=== PATIENT | female | born 1985 | race African-American/Black ===

== ENCOUNTER 2018-02-21 14:45 | Emergency (ER) | payer MEDICAID, OTHER ==
[2018-02-21 14:56] VITALS: BP 134/82
[2018-02-21] MEDS ORDERED: CYCLOBENZAPRINE HCL 10 MG TABLET PO ONE (15:22)
[2018-02-21] MEDS ORDERED: KETOROLAC TROMETHAMINE 60 MG/2 ML SDV IM ONE (15:22)
[2018-02-21] MEDS ORDERED: DIAZEPAM INJ 10 MG/2 ML DISP.SYRIN IM ONE (15:24)
--- NOTE | 2018-02-21 15:34 | ER Document Report ---
ED General - General Chief Complaint: Chest Pain Stated Complaint: CHEST PAIN Time Seen by Provider: 02/21/18 15:11 Mode of Arrival: Ambulatory Information source: Patient Notes: 32-year-old female presents with complaints of generalized body aches. Patient notes she is spasm in her low back which is radiating to her upper back down her arms into her chest wall. Patient notes it hurts when she lifts up her arms denies any actual chest pain shortness breath difficulty breathing TRAVEL OUTSIDE OF THE [place] IN LAST 30 DAYS: No - HPI Onset: Other - 2 To 3 months Onset/Duration: Persistent Quality of pain: Achy Severity: Mild Pain Level: 1 Associated symptoms: Body/muscle aches Exacerbated by: Movement Relieved by: Denies Similar symptoms previously: Yes Recently seen / treated by doctor: Yes - Related Data Allergies/Adverse Reactions: No Known Allergies Allergy (Verified 02/21/18 14:48) Past Medical History - Social History Smoking Status: Never Smoker Cigarette use (# per day): No Chew tobacco use (# tins/day): No Smoking Education Provided: No Frequency of alcohol use: Occasional Drug Abuse: None Family History: Reviewed & Not Pertinent Patient has suicidal ideation: No Patient has homicidal ideation: No Renal/ Medical History: Denies: Hx Peritoneal Dialysis Past Surgical History: Reports: Hx Section - Immunizations Immunizations up to date: Yes Hx Diphtheria, Pertussis, Tetanus Vaccination: Yes Review of Systems - Review of Systems Notes: REVIEW OF SYSTEMS: CONSTITUTIONAL : Denies fever, chills, or sweats. Denies recent illness. EENT: Denies eye, ear, throat, or mouth pain or symptoms. Denies nasal or sinus congestion or discharge. Denies throat, tongue, or mouth swelling or difficulty swallowing. CARDIOVASCULAR: Denies chest pain. Denies palpitations or racing or irregular heart beat. Denies ankle edema. RESPIRATORY: Denies cough, cold, or chest congestion. Denies shortness of breath, difficulty breathing, or wheezing. GASTROINTESTINAL: Denies abdominal pain or distention. Denies nausea, vomiting , or diarrhea. Denies blood in vomitus, stools, or per rectum. Denies black, tarry stools. Denies constipation. GENITOURINARY: Denies difficulty urinating, painful urination, burning, frequency, blood in urine, or discharge. FEMALE GENITOURINARY: Denies vaginal bleeding, heavy or abnormal periods, irregular periods. Denies vaginal discharge or odor. MUSCULOSKELETAL: Admits to body aches SKIN: Denies rash, lesions or sores. HEMATOLOGIC : Denies easy bruising or bleeding. LYMPHATIC: Denies swollen, enlarged glands. NEUROLOGICAL: Denies confusion or altered mental status. Denies passing out or loss of consciousness. Denies dizziness or lightheadedness. Denies headache. Denies weakness or paralysis or loss of use of either side. Denies problems with gait or speech. Denies sensory loss, numbness, or tingling. Denies seizures. PSYCHIATRIC: Denies anxiety or stress. Denies depression, suicidal ideation, or homicidal ideation. ALL OTHER SYSTEMS REVIEWED AND NEGATIVE. PHYSICAL EXAMINATION: GENERAL: Well-appearing, well-nourished and in no acute distress. HEAD: Atraumatic, normocephalic. EYES: Pupils equal round and reactive to light, extraocular movements intact, conjunctiva are normal. ENT: Nares patent, oropharynx clear without exudates. Moist mucous membranes. NECK: Normal range of motion, supple without lymphadenopathy LUNGS: Breath sounds clear to auscultation bilaterally and equal. No wheezes rales or rhonchi. HEART: Regular rate and rhythm without murmurs ABDOMEN: Soft, nontender, nondistended abdomen. No guarding, no rebound. No masses appreciated. Female : deferred Musculoskeletal: Normal range of motion, no pitting or edema. No cyanosis. Pain with range of motion of the upper extremities range of motion of the back no midline tenderness no cauda equina concerns NEUROLOGICAL: Cranial nerves grossly intact. Normal speech, normal gait. Normal sensory, motor exams PSYCH: Normal mood, normal affect. SKIN: Warm, Dry, normal turgor, no rashes or lesions noted. Dictation was performed using [employer] voice recognition software Physical Exam - Vital signs Vitals: Temp Pulse Resp BP Pulse Ox 99.2 F 120 H 16 134/82 H 97 02/21/18 14:55 02/21/18 14:55 02/21/18 14:55 02/21/18 14:55 02/21/18 14:55 Course - Re-evaluation Re-evalutation: 02/21/18 16:40 Patient's presentation is most consistent with musculoskeletal pain, she was given medication to relax muscles she notes significant patient denies any fevers or chills denies any actual chest pain I will discharge with his follow- up After performing a Medical Screening Examination, I estimate there is LOW risk for RUPTURED ESOPHAGUS, PNEUMOTHORAX, PULMONARY EMBOLISM, ACUTE CORONARY SYNDROME, OR THORACIC AORTIC DISSECTION, thus I consider the discharge disposition reasonable. I have reevaluated this patient multiple times and no significant life threatening changes are noted. The patient and I have discussed the diagnosis and risks, and we agree with discharging home with close follow-up. We also discussed returning to the Emergency Department immediately if new or worsening symptoms occur. We have discussed the symptoms which are most concerning (e.g., bloody sputum, worsening pain or shortness of breath) that necessitate immediate return. - Vital Signs Vital signs: Temp Pulse Resp BP Pulse Ox 99.2 F 120 H 16 134/82 H 97 02/21/18 14:55 02/21/18 14:55 02/21/18 14:55 02/21/18 14:55 02/21/18 14:55 - EKG Interpretation by Me EKG shows normal: Sinus rhythm, [place], Intervals, QRS Complexes Discharge - Discharge Clinical Impression: Body aches Arm pain Qualifiers: Laterality: bilateral Qualified Code(s): M79.601 - Pain in right arm; M79.602 - Pain in left arm; M79.602 - Pain in left arm Condition: Stable Disposition: HOME, SELF-CARE Instructions: Myalagia (Muscle Pain) ([facility]) Additional Instructions: Follow up with your physician tomorrow for further care or return to the ED IMMEDIATELY if symptoms worsen or new concerns occur. If you cannot afford to follow up with your primary care physician a list of low cost clinics have been provided at the end of your discharge papers as well. Prescriptions: Ketorolac Tromethamine [Toradol 10 mg Tablet] 10 mg PO Q8HP PRN #12 tablet PRN Reason: Cyclobenzaprine HCl [Flexeril 10 mg Tablet] 10 mg PO TIDP PRN #15 tab PRN Reason: Diazepam [Valium 5 mg Tablet] 5 mg PO QIDP PRN #15 tablet PRN Reason:
--- NOTE | 2018-02-21 18:24 | EKG REPORT ---
SEVERITY:- OTHERWISE NORMAL ECG - SINUS TACHYCARDIA : Confirmed by: Joel Bassett MD 21-Feb-2018 18:23:27
== END 2018-02-21 16:54 | disposition home or self-care (01) ==
LOC: ER 14:45
DX: M79.601 Pain in right arm (principal); M79.602 Pain in left arm; M79.1 Myalgia; M62.830 Muscle spasm of back; R07.9 Chest pain, unspecified
CPT/HCPCS: 93005; 99283; 96372; 93010; J3360; J1885

== ENCOUNTER 2018-02-23 17:39 | Emergency (ER) | payer OTHER ==
--- NOTE | 2018-02-23 17:49 | ER Document Report ---
HPI - HPI Patient complains to provider of: Bilateral lower arm pain Onset: Yesterday Quality of pain: Throbbing - Numbing Pain Level: 4 Context: 32-year-old female had bilateral upper arm pain on Saturday and was seen in the emergency department today it is from the elbows down both sides. It is a numbing throbbing type pain. No neck pain. No chest pain or shortness of breath. No other symptoms. She took the muscle relaxers but not the 10 mg ketorolac that was prescribed. She does have that in her purse. Associated Symptoms: None Exacerbated by: Movement Relieved by: Denies Similar symptoms previously: No Recently seen / treated by doctor: No - ROS ROS below otherwise negative: Yes Systems Reviewed and Negative: Yes All other systems reviewed and negative - REPRODUCTIVE Reproductive: DENIES: : Past Medical History - General Information source: Patient - Social History Smoking Status: Never Smoker Frequency of alcohol use: None Drug Abuse: None Lives with: Family Family History: Reviewed & Not Pertinent - Medical History Medical History: Negative Renal/ Medical History: Denies: Hx Peritoneal Dialysis Past Surgical History: Reports: Hx Section - Immunizations Immunizations up to date: Yes Hx Diphtheria, Pertussis, Tetanus Vaccination: Yes Vertical Provider Document - CONSTITUTIONAL Agree With Documented VS: Yes Exam Limitations: No Limitations - INFECTION CONTROL TRAVEL OUTSIDE OF THE [place] IN LAST 30 DAYS: No - HEENT HEENT: Atraumatic, Normal ENT Exam, Normocephalic - NECK Neck: Supple - Nontender and no axial load tenderness - RESPIRATORY Respiratory: Breath Sounds Normal, No Respiratory Distress - CARDIOVASCULAR Cardiovascular: Regular Rate, Regular Rhythm - MUSCULOSKELETAL/EXTREMETIES Musculoskeletal/Extremeties: MAEW, FROM, Tender - Tender over the radial forearm muscles, no swelling or erythema. Neurovascular status is intact. 5+ strength bilateral - NEURO Level of Consciousness: Awake, Alert Motor/Sensory: No Motor Deficit, No Sensory Deficit - DERM Integumentary: No Rash Discharge - Discharge Clinical Impression: Bilateral forearm myalgia, Paresthesia Condition: Good Disposition: HOME, SELF-CARE Instructions: Acetaminophen, Anti-Inflammatory Medication ([facility]), Myalagia ( Muscle Pain) ([facility]), Numbness or Paresthesia ([facility]), Warm Packs ([facility]) Additional Instructions: warm compress tylenol up to 4000 mg per day ketorolac for inflammation that has already been prescribed to you see family practice doctor for follow-up Return to the emergency room for worsening of the symptoms Forms: Return to Work Referrals: ANNA MARIE CHICAS DO [NO LOCAL MD] - 02/25/18
[2018-02-23] MEDS ORDERED: ACETAMINOPHEN 325 MG TABLET PO ONE (18:09)
[2018-02-23 18:35] VITALS: BP 135/79
== END 2018-02-23 18:33 | disposition home or self-care (01) ==
LOC: ER 17:39
DX: M79.1 Myalgia (principal); R20.2 Paresthesia of skin; M79.602 Pain in left arm; M79.601 Pain in right arm
CPT/HCPCS: 99283

== ENCOUNTER 2020-01-23 19:06 | Emergency (ER) | payer BC, OTHER ==
[2020-01-23] MEDS ORDERED: IBUPROFEN 800 MG TABLET PO ONE (19:22)
--- NOTE | 2020-01-23 19:23 | ER Document Report ---
ED Medical Screen (RME) - General Chief Complaint: Headache Stated Complaint: HEADACHE,CHEST HEAVINESS Time Seen by Provider: 01/23/20 19:19 Mode of Arrival: Ambulatory Information source: Patient Notes: 34-year-old female presents emergency department with complaints of chest heaviness that started 1 hour ago. She also complains of a headache that comes and goes since last night. She is taken Tylenol ibuprofen and vinegar for the headache. The vinegar took care of the headache but it returned approximately 1 hour ago. Denies fever vomiting diarrhea. Denies history of cardiac disease. Denies recent trip. Has not taken anything for the headache today. Denies COVID exposure. Respiratory rate even unlabored. I have greeted and performed a rapid initial assessment of this patient. A comprehensive ED assessment and evaluation of the patient, analysis of test results and completion of the medical decision making process will be conducted by additional ED providers. TRAVEL OUTSIDE OF THE [place] IN LAST 30 DAYS: No - Related Data Allergies/Adverse Reactions: No Known Allergies Allergy (Verified 02/21/18 14:48) Past Medical History Renal/ Medical History: Denies: Hx Peritoneal Dialysis Past Surgical History: Reports: Hx Section - Immunizations Immunizations up to date: Yes Hx Diphtheria, Pertussis, Tetanus Vaccination: Yes Physical Exam - Vital signs Vitals: Temp Pulse Resp BP Pulse Ox 99.2 F 102 H 18 144/77 H 99 01/23/20 19:11 01/23/20 19:11 01/23/20 19:11 01/23/20 19:11 01/23/20 19:11 Course - Vital Signs Vital signs: Temp Pulse Resp BP Pulse Ox 99.2 F 102 H 18 144/77 H 99 01/23/20 19:18 01/23/20 19:11 01/23/20 19:11 01/23/20 19:11 01/23/20 19:11
[2020-01-23 20:05] LABS: ABSOLUTE EOSINOPHILS # (AUTO) 0.2 10^3/uL (0.0-0.6); ABSOLUTE LYMPHOCYTES (AUTO) 2.4 10^3/uL (0.5-4.7); ABSOLUTE MONOCYTES (AUTO) 0.5 10^3/uL (0.1-1.4); ABSOLUTE NEUT (AUTO) 3.3 10^3/uL (1.7-8.2); BASOPHILS % (AUTO) 0.6 % (0-2); EOSINOPHILS % (AUTO) 2.4 % (0-6); HEMATOCRIT 40.9 % (36.0-47.0); HEMOGLOBIN 13.8 g/dL (12.0-15.5); LYMPHOCYTES % (AUTO) 37.6 % (13-45); MEAN CORPUSCULAR HEMOGLOBIN 28.6 pg (27.0-33.4); MEAN CORPUSCULAR HGB CONC 33.8 g/dL (32.0-36.0); MEAN CORPUSCULAR VOLUME 85 fl (80-97); MONOCYTES % (AUTO) 7.7 % (3-13); PLATELET COUNT 243 10^3/uL (150-450); RED BLOOD COUNT 4.84 10^6/uL (3.72-5.28); SEGMENTED NEUTROPHILS % (AUTO) 51.7 % (42-78); TOTAL CELLS COUNTED % (AUTO) 100 %; WHITE BLOOD COUNT 6.5 10^3/uL (4.0-10.5)
--- NOTE | 2020-01-23 20:12 | RADIOLOGY REPORT (SQ) ---
EXAM DESCRIPTION: XR CHEST 2 VIEWS COMPLETED DATE/TME: 01/23/2020 19:22 CLINICAL HISTORY: 34 years, Female, chest heavieness COMPARISON: None. NUMBER OF VIEWS: 2 TECHNIQUE: Frontal and lateral radiographs were obtained LIMITATIONS: None. FINDINGS: Cardiac and mediastinal contours are normal. Lungs are clear. No pleural effusion or pneumothorax. IMPRESSION: No acute disease. copyright 2010 [employer]- All Rights Reserved
[2020-01-23 20:27] LABS: ALBUMIN 4.7 g/dL (3.5-5.0); ALKALINE PHOSPHATASE 108 U/L (38-126); ANION GAP 10 (5-19); ASPARTATE AMINO TRANSFERASE 27 U/L (14-36); BILIRUBIN,TOTAL 0.3 mg/dL (0.2-1.3); BLOOD UREA NITROGEN 9 mg/dL (7-20); CALCIUM 9.6 mg/dL (8.4-10.2); CARBON DIOXIDE 23 mmol/L (22-30); CHLORIDE 106 mmol/L (98-107); GLUCOSE 103 mg/dL (75-110); POTASSIUM 4.4 mmol/L (3.6-5.0); TOTAL PROTEIN 8.2 g/dL (6.3-8.2)
[2020-01-23] MEDS ORDERED: CETIRIZINE 10 MG TABLET PO ONE (21:03)
[2020-01-23] MEDS ORDERED: FAMOTIDINE 20 MG TABLET PO ONE (21:03)
--- NOTE | 2020-01-23 21:03 | ER Document Report ---
ED General - General Chief Complaint: Chest Tightness Stated Complaint: HEADACHE,CHEST HEAVINESS Time Seen by Provider: 01/23/20 19:19 Primary Care Provider: KIMBER BEAVER PA-C [Primary Care Provider] - Follow up as needed Mode of Arrival: Ambulatory Notes: Patient is a 34-year-old female who presents the emergency department with a chief complaint of chest heaviness, tightness in her mid chest, and a headache that started yesterday. States that she took some ibuprofen and Tylenol with no relief. She then took vinegar yesterday and it helped with her headache. Patient states that she has history of a cholecystectomy. Before she had a cholecystectomy, she ended up having GERD. She does not take anything for her GERD. TRAVEL OUTSIDE OF THE [place] IN LAST 30 DAYS: No - Related Data Allergies/Adverse Reactions: No Known Allergies Allergy (Verified 02/21/18 14:48) Past Medical History - General Information source: Patient - Social History Smoking Status: Never Smoker Family History: Reviewed & Not Pertinent Patient has suicidal ideation: No Patient has homicidal ideation: No Renal/ Medical History: Denies: Hx Peritoneal Dialysis Past Surgical History: Reports: Hx Section - Immunizations Immunizations up to date: Yes Hx Diphtheria, Pertussis, Tetanus Vaccination: Yes Review of Systems - Review of Systems Notes: REVIEW OF SYSTEMS: CONSTITUTIONAL : Denies recent illness. Denies recent unintentional weight loss. Denies fever, chills, or sweats. EENT: See HPI. CARDIOVASCULAR: See HPI. RESPIRATORY: Denies shortness of breath, cough, congestion, difficulty breathing, or wheezing. GASTROINTESTINAL: See HPI. GENITOURINARY: Denies difficulty urinating, burning, blood in urine, urgency or frequency. MUSCULOSKELETAL: Denies neck and back pain. Denies joint pain or swelling. SKIN: Denies rash, itchiness, or lesions HEMATOLOGIC : Denies easy bruising or bleeding. LYMPHATIC: Denies swollen, painful, enlarged glands. NEUROLOGICAL: Denies no numbness or tingling denies weakness. Denies headache. Denies altered mental status. Denies alteration in speech. PSYCHIATRIC: Denies stress, anxiety, alteration in sleep patterns, or depression. All other systems reviewed and negative. Physical Exam - Vital signs Vitals: Temp Pulse Resp BP Pulse Ox 99.2 F 102 H 18 144/77 H 99 01/23/20 19:11 04/25/20 19:11 01/23/20 19:11 01/23/20 19:11 01/23/20 19:11 - Notes Notes: PHYSICAL EXAMINATION: GENERAL: Appears well, healthy, well-nourished, no acute distress. HEAD: Normocephalic, atraumatic. EYES: PERRL, conjunctiva normal, all extraocular movements intact, sclera nonicteric ENT: Moist mucous membranes. Edema and erythema noted to nasal mucosa. NECK: Supple, no noticeable swelling, redness, rash. Normal range of motion. LUNGS: Equal breath sounds bilaterally and clear to auscultation. No wheezes rales or rhonchi. CARDIOVASCULAR: S1-S2, regular rate, regular rhythm. Radial pulses 2+, normal. ABDOMEN: Normoactive bowel sounds. Soft, mildly tender epigastric area, no guarding, no rebound tenderness, and no masses palpated. EXTREMITIES: Normal strength and range of motion, no pitting or edema. No cyanosis. NEUROLOGICAL: Moves all extremities upon command. Strength 5/5 in all extremities. PSYCH: Normal mood, normal affect. SKIN: Warm, dry. No rash, lesions, ulcerations noted. Normal skin turgor. Course - Re-evaluation Re-evalutation: Hematology is unremarkable. Chemistries are also unremarkable. Troponin is negative. LFTs are normal. hCG is also negative. Chest x-ray is normal. No pneumonia noted. EKG shows a heart rate of [address] elevations or depressions. I have a very low suspicion for ACS, aortic dissection, pneumothorax, pulmonary emboli, or any life-threatening etiology at this time.. Patient does have edema and erythema noted to her nasal mucosa. We will start her on cetirizine and Flonase. We will also start her on Pepcid. She will follow-up with primary care provider regards to this visit. Follow-up precautions were given. Verbal discharge instructions were given to the patient. They verbalized understanding. They are stable for discharge. - Vital Signs Vital signs: Temp Pulse Resp BP Pulse Ox 97.9 F 97 16 131/92 H 98 01/23/20 21:35 01/23/20 21:35 01/23/20 21:35 01/23/20 21:35 01/23/20 21:35 - Laboratory Result Diagrams: 01/23/20 19:35 01/23/20 19:35 - EKG Interpretation by Me Additional EKG results interpreted by me: Sinus rhythm. Rate 100. [place] 168; QRS 80; QT 348; QTc 449. No ST elevations or depressions noted. Discharge - Discharge Clinical Impression: Chest tightness, Seasonal allergies Headache Qualifiers: Headache type: unspecified Headache chronicity pattern: unspecified pattern Intractability: not intractable Qualified Code(s): R51 - Headache Condition: Stable Disposition: HOME, SELF-CARE Additional Instructions: You are seen today in the emergency department for chest tightness. Your labs and chest x-ray are normal. Please start medications for your allergies and for acid reflux. Follow-up with your primary care provider. Prescriptions: Cetirizine HCl [All Day Allergy] 10 mg PO DAILY #30 tablet Fluticasone Propionate [Flonase Nasal [place] 50 Mcg/[place] 16 gm] 2 sprays NASL DAILY #1 inhaler Famotidine [Pepcid 20 mg Tablet] 20 mg PO BID #60 tablet Referrals: KIMBER BEAVER PA-C [Primary Care Provider] - Follow up as needed
[2020-01-23 21:36] VITALS: BP 131/92
--- NOTE | 2020-01-24 10:31 | EKG REPORT ---
SEVERITY:- OTHERWISE NORMAL ECG - SINUS TACHYCARDIA : Confirmed by: Evelyn Capps 24-Jan-2020 10:31:14
== END 2020-01-23 21:36 | disposition home or self-care (01) ==
LOC: ER 19:06
DX: R07.89 Other chest pain (principal); J30.2 Other seasonal allergic rhinitis; R51 Headache; R10.816 Epigastric abdominal tenderness
CPT/HCPCS: 36415; 71046; 80053; 84484; 84703; 85025; 93005; 93010; 99284